=== PATIENT | female | born 2000 | race Asian ===

== ENCOUNTER 2022-09-09 15:24 | Emergency (ER) | payer OTHER ==
[~2022-09-09] VITALS: Ht 167.6 cm; Wt 64.0 kg
[2022-09-09] MEDS ORDERED: ZYRTEC10 MG PO (17:57)
[2022-09-09] MEDS ORDERED: FLONASE AL50 MCG/AC1 (17:57)
[2022-09-09] MEDS ORDERED: PROAIR HFA IN (17:57)
[2022-09-09 18:10] VITALS: BP 123/87
== END 2022-09-09 18:10 | disposition home or self-care (01) | DRG 153 ==
LOC: ED 15:24
DX: J06.9 Acute upper respiratory infection, unspecified (principal)